=== PATIENT | female | born 1955 ===

== ENCOUNTER 2025-03-05 01:23 | Outpatient (CLI) | payer MEDICARE, BC, SELFPAY ==
--- NOTE | 2025-03-05 | DI.US_ITS ---
Exam(s) US THYROID EXAM: US THYROID CLINICAL HISTORY: HYPOTHYROIDISM E03.9 THYROID NODULE E04.1. TECHNIQUE: Ultrasound thyroid performed using standard protocol. COMPARISON: US US THYROID/NECK from 10/07/2012 reports are no longer available. FINDINGS: Exam is limited by patient body habitus. Posterior portions of the gland are suboptimally penetrated. ISTHMUS: 12 mm. Nodule at the isthmus measures 13 millimeters. Solid, isoechoic, smoothly marginated without echogenic foci., TR 3. RIGHT LOBE: Size: 5 x 2.8 x 1.7 cm Echogenicity: Heterogeneous with innumerable nodules. Vascularity: Normal. Nodules: Innumerable. Difficult to compare to prior since only a few nodules were measured on that exam. Nodule measuring near the upper pole measuring 2.5 x 1.4 x 2.2 cm. Solid, isoechoic, taller than wide, smoothly marginated without echogenic foci, TR 4. Nodule near lower pole measuring 2.3 x 2.3 x 1.3. Solid, isoechoic, taller than wide, TR 4. Additional nodule inferiorly measuring 2.4 x 2.2 x 2.7 cm mostly solid, isoechoic, wider than tall, smoothly marginated and without echogenic foci, TR 3. LEFT LOBE: Size: 4.6 x 2.8 x 1.7 cm Echogenicity: Heterogeneous. Innumerable nodules. Vascularity: Normal. Nodules: Innumerable. Difficult to compared with priors only a few nodules are measured on the previous exam. Nodule in mid left lobe mass is measured at 1.8 x 2.1 x 1.1 cm. Solid, isoechoic, taller than wide, smoothly marginated without echogenic foci. TR 4. Nodule near lower pole measuring 2.3 x 2.3 x 1.5 cm. Solid, isoechoic, taller than wide, smoothly marginated without echogenic foci. TR 4. OTHER FINDINGS: No adenopathy. IMPRESSION: Multi nodular thyroid. Nodule at isthmus appears smaller. Multiple bilateral thyroid nodules. Larger nodules were measured as above. DATA REPOSITORY:
== END 2025-03-05 01:43 ==
PROVIDERS: PCP Family Medicine; Visit Provider Nurse Practitioner Family
DX: E03.9 Hypothyroidism, unspecified (principal); E04.2 Nontoxic multinodular goiter
CPT/HCPCS: 76536